=== PATIENT | male | born 1975 | race Caucasian/White ===

== ENCOUNTER 2022-06-17 10:46 | Outpatient (CLI) | payer BC, SELFPAY ==
[2022-06-17 14:26] LABS: Albumin* 4.3 g/dL (3.3-5.0); Chloride* 105 mmol/L (96-114); Potassium* 4.7 mmol/L (3.6-5.1); Sodium* 141 mmol/L (135-149)
[2022-06-17 14:29] LABS: Alanine Aminotransferase* 33 U/L (4-50); Alkaline Phosphatase* 87 U/L (40-150); Aspartate Amino Transferase* 27 U/L (12-35); Bilirubin Total* 0.5 mg/dL (0.1-1.5); Blood Urea Nitrogen* 13 mg/dL (5-24); Carbon Dioxide* 25 mmol/L (20-32); Creatinine* 0.9 mg/dL (0.5-1.5); Estimated Glomerular Filt Rate 108 ml/min; Glucose* 84 mg/dL (60-115); Total Protein* 7.2 g/dL (6.0-8.3)
[2022-06-17 14:30] LABS: Calcium* 9.2 mg/dL (8.4-10.6); Vitamin D 25 Hydroxy* 34 ng/mL (30-80)
[2022-06-17 14:48] LABS: Ferritin* 69.9 ng/mL (17.9-464.0)
[2022-06-17 15:10] LABS: Vitamin B12* 354 pg/mL (243-894)
== END 2022-06-17 10:47 | disposition home or self-care (01) ==
PROVIDERS: PCP Physician Assistant Medical; Visit Provider Physician Assistant Medical
DX: R53.83 Other fatigue (principal)
CPT/HCPCS: 80053; 82306; 82607; 82728; 84443

== ENCOUNTER 2023-06-13 09:45 | Emergency (ER) | payer OTHER, SELFPAY ==
[2023-06-13 10:44] VITALS: BP 144/84; PULSE 70; RESP 16; TEMP 36.5; O2SAT 97; BMI 42.2
--- NOTE | 2023-06-13 13:33 | ED_ITS ---
HPI - Skin/Abscess/Foreign Bdy General Time Seen by Provider: 13:33 Date Seen: 06/13/23 Chief complaint: Skin/Abscess/Foreign Body Stated complaint: Cellulitis Time Seen by Provider: 06/13/23 13:32 Source: patient and RN notes reviewed Mode of arrival: ambulatory Limitations: no limitations History of Present Illness HPI narrative: This 47-year-old male is coming in with concern of right lower extremity cellulitis which he has had recurrent leave before. He states he has chronic swelling in this extremity, does not use any compression stockings. Did review with him that he should probably talk to his primary care provider about some type of compression to help prevent edema buildup in the leg and thus recurrent cellulitis. He notes no trauma, has had no fevers or chills. Has been in bed the last 2 days with nausea and vomiting, some diarrhea just started today. There has been no travel. He does not have a history of thromboembolic disease, no family history of this either. Denies any history of MRSA that he is aware of. Related Data Previous Rx's Medication Instructions Recorded fluoxetine 40 mg capsule 40 mg PO QDAY #90 caps 03/30/23 trazodone 50 mg tablet 50 - 150 mg (1 - 3 x 50 mg) PO QHS 03/30/23 #60 tabs cephalexin 500 mg tablet 1,000 mg (2 x 500 mg) PO TID 7 06/13/23 days #42 tabs Allergies Allergy/AdvReac Type Severity Reaction Status Date / Time No Known Allergies Allergy Unknown Verified 06/13/23 10:43 Review of Systems Status of ROS: Reports: 6 or more systems reviewed and unremarkable except as noted in History and below [facility] Medical History History of cellulitis ?Z87.2 - Personal history of diseases of the skin and subcutaneous tissue (ICD-10) Surgical History History of vasectomy ?Z98.52 - Vasectomy status (ICD-10) History of colonoscopy ?Z98.890 - Other specified postprocedural states (ICD-10) History of cholecystectomy ?Z90.49 - Acquired absence of other specified parts of digestive tract (ICD- 10) History of arthroscopy of right knee (01/30/14) ?Z98.890 - Other specified postprocedural states (ICD-10) Family History Father Cardiac arrhythmia Colon cancer Social History Narrative: does not use illicit drugs nonsmoker occasional alcohol consumption Smoking Status: Never smoker Do you use any of these nicotine containing products: None Second hand tobacco smoke exposure: No How often do you have a drink containing alcohol: monthly or less AUDIT-C Alcohol total score: 1 Non-prescribed substance use: denies use Little interest or pleasure in doing things: more than half the days Feeling down, depressed, or hopeless: more than half the days service: No Exam Const: Vital Signs, click to edit/add: Vital Signs - 24 hr 06/13/23 10:44 Temperature 97.7 F Pulse Rate [Pulse Oximeter] 70 Respiratory Rate 16 Blood Pressure [Ri ght Upper Arm] 144/84 H Pulse Oximetry 97 Oxygen Delivery Me thod Room Air Zane is a very pleasant 47-year-old male lying in the bed in exam room 5. He is obese. He is alert, interactive, no apparent distress. Sclera clear, atraumatic face. Speech is normal. Lungs are clear anteriorly, no tachypnea, no accessory muscle use noted. CV regular rate and rhythm, no murmur, normal S1 and S2, no S3 or S4. Abdomen is soft, no rebound or guarding, no organomegaly. He has about 2 to 3+ pitting edema of his right lower extremity and there is erythema and warmth, tenderness consistent with cellulitis from a few cm below the knee down the leg. She is quite a large distribution of his right lower extremity anteriorly that seems to be involved with the erythema and swelling, presumably cellulitis. Documenting provider has reviewed patient's vital signs: yes Course Course ED Course: Reviewed with patient that I do recommend proceeding with ultrasound of this right lower extremity to ensure that there is no underlying thromboembolic disease. Will place an IV, given 2 g IV Rocephin, get baseline labs. My current assessment is cellulitis of this right lower extremity, rule out DVT. It is likely that he will be able to discharge to home with outpatient oral a ntibiotics and clinic follow-up. Reevaluation(s) Time of Reevaluation #1: 16:04 Reevaluation #1: Reviewed with patient white count just mildly up, C-reactive protein elevated but ultrasound is negative for DVT. Will initiate outpatient oral antibiotics, can start in the morning. He has received Rocephin here. Vital Signs Vital signs: Initial Vital Signs Temperature 97.7 F 06/13/23 10:44 Temperature Source Temporal Artery Scan 06/13/23 10:44 Pulse Rate 70 06/13/23 10:44 Pulse Rhythm Regular 06/13/23 10:44 Pulse Strength 3+ Normal 06/13/23 10:44 Respiratory Rate 16 06/13/23 10:44 Blood Pressure 144/84 H 06/13/23 10:44 Blood Pressure Mean 104 06/13/23 10:44 Blood Pressure Position Sitting 06/13/23 10:44 Pulse Oximetry 97 06/13/23 10:44 Oxygen Delivery Method Room Air 06/13/23 10:44 Vital Signs Temperature 97.7 F 06/13/23 10:44 Pulse Rate 70 06/13/23 10:44 Respiratory Rate 16 06/13/23 10:44 Blood Pressure 144/84 H 06/13/23 10:44 Pulse Oximetry 97 06/13/23 10:44 Oxygen Delivery Method Room Air 06/13/23 10:44 Temperature 97.7 F 06/13/23 10:44 Pulse Rate 70 06/13/23 10:44 Respiratory Rate 16 06/13/23 10:44 Blood Pressure 144/84 H 06/13/23 10:44 Pulse Oximetry 97 06/13/23 10:44 Oxygen Delivery Method Room Air 06/13/23 10:44 MDM - Skin/Abscess/Foreign Bdy Lab Data Attestation: I reviewed the patient's lab results. Labs: Lab Results 06/13/23 Range/Units 14:25 WBC 10.01 (4.50-11.00) K/uL RBC 5.05 (4.30-5.90) m/uL Hgb 15.2 (13.5-17.5) gm/dL Hct 45.6 (37.0-53.0) % MCV 90 (80-100) fL MCH 30 (26-34) pg MCHC 33 (32-36) gm/dL RDW Coeff of Pari 13.3 (11.5-15.5) % Plt Count 198 (140-440) K/uL Neut % (Auto) 77.2 H (42.0-72.0) % Lymph % (Auto) 11.0 L (20-44) % [place] % (Auto) 10.2 (0.0-11.0) % Eos % (Auto) 0.5 (0.0-7.0) % Baso % (Auto) 0.2 (0.0-3.0) % Neut # (Auto) 7.70 H (1.7-7.0) K/uL Lymph # (Auto) 1.10 (0.90-2.90) K/uL [place] # (Auto) 1.00 H (0.00-0.90) K/UL Eos # (Auto) 0.05 (0.00-0.50) K/uL Baso # (Auto) 0.02 (0.00-0.30) K/uL Abs Immat Gran (auto) 0.09 (0.00-0.30) K/uL Imm/Tot Granulo (auto) 0.9 % Sodium 138 (135-149) mmol/L Potassium 3.8 (3.6-5.1) mmol/L Chloride 103 (96-114) mmol/L Carbon Dioxide 26 (20-32) mmol/L Anion Gap 9 (7-15) mEq/L BUN 21 (5-24) mg/dL Creatinine 1.0 (0.5-1.5) mg/dL Estimated Creat Clear 105.42 Estimated GFR 95 ml/min Glucose 88 (60-115) mg/dL Lactate 0.9 (0.5-1.9) mmol/L Calcium 8.3 L (8.4-10.6) mg/dL C-Reactive Protein 19.1 H (0.5-1.0) mg/dL Imaging Data Venous US: Attestation: I have reviewed the pertinent imaging results. Radiologist's impression: Patient: JEREMÍAS GREENE Facility:?[facility] Patient ID:?[id number] Site Patient ID:?[id number]. Site :?[id number] Study:?US Extremity Right VENOUS DVT-06/13/2023 2:16:07 PM Ordering Physician:Meron Zapata Final Report: INDICATION: Right lower extremity swelling, pain, and cellulitis COMPARISON: None. TECHNIQUE: Leon-scale, color, and duplex Doppler imaging of the examined veins. Compression and augmentation attempted where anatomically and clinically feasible. FINDINGS: Laterality: Right Examined veins: Common femoral, femoral, popliteal, peroneal Proximal and mid greater saphenous The examined veins are patent with normal color Doppler flow and a normal venous waveform on duplex Doppler. Where possible, there is normal compression and normal augmentation of flow. The left common femoral vein was stable for comparison and is normal. IMPRESSION: No deep vein thrombosis in the right leg. Dictated by Kristen Harris MD @ 06/13/2023 3:11:46 PM (Electronic Signature) Discharge Plan Discharge Clinical Impression: Cellulitis Patient Disposition: Home, Self-Care Condition: Stable Instructions: Cellulitis (ED) Additional Instructions: Start oral antibiotics tomorrow, take as prescribed. Do recommend that you try to elevate this leg until symptoms are improving. If you feel symptoms are worsening, develops fever, have further concerns, do recommend re-evaluation. Recommend re-evaluation within the next 3-5 days in clinic to ensure appropriate resolution. Activity Level: Activity as Tolerated Prescriptions: New cephalexin 500 mg tablet 1,000 mg PO TID 7 Days Qty: 42 0RF No Action fluoxetine 40 mg capsule 40 mg PO QDAY Qty: 90 1RF trazodone 50 mg tablet 50 - 150 mg PO QHS Qty: 60 0RF Follow Up/Referrals: Devante Pickard PA-C [Primary Care Provider] - Stand Alone Forms: [facility] Info Instructions
--- NOTE | 2023-06-13 13:38 | CRLHL7_ITS ---
For Patients: As a result of the Century Cures Act, medical imaging exams and procedure reports are released immediately into your electronic medical record. You may view this report before your referring provider. If you have questions, please contact your health care provider. INDICATION: Right lower extremity swelling, pain, and cellulitis COMPARISON: None. TECHNIQUE: Leon-scale, color, and duplex Doppler imaging of the examined veins. Compression and augmentation attempted where anatomically and clinically feasible. FINDINGS: Laterality: Right Examined veins: Common femoral, femoral, popliteal, peroneal Proximal and mid greater saphenous The examined veins are patent with normal color Doppler flow and a normal venous waveform on duplex Doppler. Where possible, there is normal compression and normal augmentation of flow. The left common femoral vein was stable for comparison and is normal. IMPRESSION: No deep vein thrombosis in the right leg. Dictated by Kristen Harris MD @ 06/13/2023 3:11:46 PM (Electronically Signed)
[2023-06-13] MEDS: cefTRIAXone 2 GM in 0.9 % SODIUM CHLORIDE Mini-bag 100 ML IVPB (14:31)
[2023-06-13 14:33] LABS: Lactate* 0.9 mmol/L (0.5-1.9)
[2023-06-13 14:40] LABS: Basophils Absolute Auto 0.02 K/uL (0.00-0.30); Basophils Percent Auto 0.2 % (0.0-3.0); Eosinophils Absolute Auto 0.05 K/uL (0.00-0.50); Eosinophils Percent Auto 0.5 % (0.0-7.0); Hematocrit 45.6 % (37.0-53.0); Hemoglobin* 15.2 gm/dL (13.5-17.5); Immature Granulocytes Abs Auto 0.09 K/uL (0.00-0.30); Immature Granulocytes Pct Auto 0.9 %; Mean Corpuscular HGB Conc 33 gm/dL (32-36); Mean Corpuscular Hemoglobin 30 pg (26-34); Mean Corpuscular Volume 90 fL (80-100); Monocytes Percent Auto 10.2 % (0.0-11.0); Neutrophils Percent Auto 77.2 % (42.0-72.0); Platelet Count* 198 K/uL (140-440); RDW Coefficient of Variation % 13.3 % (11.5-15.5); Red Blood Count 5.05 m/uL (4.30-5.90); White Blood Count* 10.01 K/uL (4.50-11.00)
[2023-06-13 14:43] LABS: Slide Review Reflex No
[2023-06-13 15:29] LABS: Chloride* 103 mmol/L (96-114)
[2023-06-13 15:30] LABS: Potassium* 3.8 mmol/L (3.6-5.1); Sodium* 138 mmol/L (135-149)
[2023-06-13 15:32] LABS: Est. Creatinine Clearance* 105.42; Estimated Glomerular Filt Rate 95 ml/min
[2023-06-13 15:33] LABS: Anion Gap 9 mEq/L (7-15); Blood Urea Nitrogen* 21 mg/dL (5-24); Calcium* 8.3 mg/dL (8.4-10.6); Carbon Dioxide* 26 mmol/L (20-32); Glucose* 88 mg/dL (60-115)
[2023-06-13 15:51] LABS: C Reactive Protein* 19.1 mg/dL (0.5-1.0)
== END 2023-06-13 16:14 | disposition home or self-care (01) ==
PROVIDERS: Emergency Provider Family Medicine; PCP Physician Assistant Medical
DX: L03.115 Cellulitis of right lower limb (principal)
CPT/HCPCS: 36415; 80048; 83605; 85025; 86140; 93971; 96365; 99284; J0696

== ENCOUNTER 2024-07-16 08:35 | Outpatient (CLI) | payer OTHER, SELFPAY ==
--- OUTSIDE RECORDS SUMMARY | 2024-07-18 09:50 | XMS_ITS | Clinical Summary ---
Author Organization [facility] Address [place], [place] [address] Care Team Providers Care Public Health Policy Analyst Name Role Phone Pcp, No Primary Care Provider Unavailabl e Allergies Active Allergy Reactions Criticality Noted Date Comments Zolpidem Confusion Medium 06/30/2006 Lorazepam Hallucinations Medium 06/30/2006 Medications Medication Sig Dispensed Refills Start Date End Date Status HYDROcodone-acetam inophen, 5-325 mg, (NORCO) per tablet Take 1-2 tablets by mouth every 4-6 hours as needed for pain. Max daily dose of acetaminophen is 4000mg 20 tablet 03/06/2013 Active trimethoprim-sulfa methoxazole, 160-800 mg, (BACTRIM DS, SEPTRA DS) tablet Take 1 tablet by mouth twice daily for 10 days 20 tablet 03/06/2013 Active Active Problems Problem Noted Date Diagnosed Date Calculus of gallbladder with out mention of cholecystitis or obstruction 07/02/2006 Overview (07/02/2006): S/P lap ruben 06/30/06 Dr. Can Acute pancreatitis 06/27/2006 Hypocalcemia 06/27/2006 Esophageal reflux 06/27/2006 LEUKOCYTOSIS 06/27/2006 Social History Tobacco Use Types Packs/Day Years Used Date Smoking Tobacco: Never Alcohol Use Standard Drinks/Week Comments No 0 (1 standard drink = 0.6 oz pur e alcohol) Sex and Gender Information Value Date Recorded Sex Assigned at Not on file Gender Identity Not on file Sexual Orientation Not on file Obstetrics History Last Filed Vital Signs Vital Sign Reading Time Taken Comments Blood Pressure 133/84 06/17/2010 10:19 AM CDT Pulse 60 06/17/2010 10:19 AM CDT Temperature 36.4 C (97.6 F) 06/17/2010 10:19 AM CDT Respiratory Rate 16 06/17/2010 10:19 AM CDT Oxygen Saturation 99% 06/17/2010 10:19 AM CDT Inhaled Oxygen Concentration - - Weight 158.8 kg (350 lb) 06/17/2010 10:19 AM CDT Height 188 cm (6' 2) 06/17/2010 10:19 AM CDT Body Mass Index 44.94 06/17/2010 10:19 AM CDT Plan of Treatment Health Maintenance Due Date Last Done Comments Tdap 1988 Depression screening for age 12+ 1989 HIV for age 15-65 1992 BMI (ht and wt on same day) for age 18+ 12/30/1995 Hepatitis C screening for ag e 18-79 12/30/1995 Tetanus booster 1997 Colonoscopy through age 75 2022 Lipids for age 45-75 2022 06/26/2006 COVID-19 vaccine series (2023-25 season) 2024 Influenza for age 9-49 04/21/2024 Pneumococcal series for age 6-64 Aged Out No longer eligible based on patient's age to complete this topic Procedures Procedure Name Priority Date/Time Associated Diagnosis Comments LIPID PANEL Routine 06/26/2006 4:01 PM RING PACKER Acute Pancreatitis from Last 3 Months or Most Recently Relevant to Health Maintenance Results * (ABNORMAL) LIPID PANEL (06/26/2006 4:01 PM RING PACKER) CHOLESTEROL,TOTAL 101(L) 110 - 199 mg/dL [facility] TRIGLYCERIDES 46 40 - 149 mg/dL [facility] HDL CHOLESTEROL 49 >40 mg/dL [facility] CHOL/HDL RATIO 2.06 <4.51 [facility] LDL CHOLESTEROL 43 <131 mg/dL [facility] PATIENT STATUS Fasting [facility] Blood specimen (specimen) BLOOD SPECIMEN / Unknown 06/26/2006 4:01 PM RING PACKER 06/26/2006 3:56 PM RING PACKER R Ye Han MD CHEMISTRY [facility] [place]NAL ZIP [address] [address] from Last 3 Months or Most Recently Relevant to Health Maintenance Advance Directives * Full Code (Latest Code Status on File) Date Activated Date Inactivated Comments 06/26/2006 9:42 PM 07/02/2006 6:35 PM Care Teams Public Health Policy Analyst Relationship Specialty Start Date End Date Pcp, No . PCP - General 03/06/13
--- OUTSIDE RECORDS SUMMARY | 2024-07-18 09:50 | XMS_ITS | Encounter Summary ---
Author Organization [facility] Address [address] [place] [address] Care Team Providers Care Compensator Worker Name Role Phone [facility] Primary Care Provider Marilu Judge PA-C Unavailable [phone] Marilu Judge PA-C Unavailable [phone] Devante PickardC Primary Care Provider [phone] Encounter Details Date Type Department Care Team (Late st Contact Info) Description 10/11/2023 MyC Medical Advice [facility] [address] [place] [id number] Glendy Kraft MA Social History Tobacco Use Types Packs/Day Years Used Date Smoking Tobacco: Never Assessed Alcohol Use Standard Drinks/Week Comments Yes 0 (1 standard drink = 0.6 oz pur e alcohol) Adolescent Education Answer Date Record ed Getting School Help Needed Not on file 05/12 Sex and Gender Information Value Date Recorded Sex Assigned at Not on file Legal Sex Male 12:33 PM CDT Gender Identity Not on file Sexual Orientation Not on file documented as of this encounter Plan of Treatment Not on file documented as of this encounter Visit Diagnoses Not on filedocumented in this encounter Care Teams Compensator Worker Relationship Specialty Start Date End Date [facility] [address] [place] [address] PCP - General 03/01/23 01/22/24 Devante Pickard PA-C [address] [facility] [place] [address] PCP - General 01/23/24 Marilu Judge PA-C [address] [place] [address] Physician [employer] Urology 10/09/23 Marilu Judge PA-C [address] [place] [address] Assigned Surgical Provider 11/03/23 documented as of this encounter
--- OUTSIDE RECORDS SUMMARY | 2024-07-18 09:50 | XMS_ITS | Encounter Summary ---
Author Organization [place] Address [address] [place] [address] Care Team Providers Care Compliance Investigator Name Role Phone [facility] Primary Care Provider Marilu Judge PA-C Unavailable [phone] Marilu Judge PA-C Unavailable [phone] Devante PickardC Primary Care Provider [phone] Encounter Details Date Type Department Care Team (Late st Contact Info) Description 12/25/2023 MyC Medical Advice [facility] Preoperative Assessment Center [address] [place] [address] Marie Hoover, RN Social History Tobacco Use Types Packs/Day Years Used Date Smoking Tobacco: Never Smokeless Tobacco: Never Alcohol Use Standard Drinks/Week Comments Yes 0 (1 standard drink = 0.6 oz pur e alcohol) Moderate PHQ-2 Answer Date Recorded PHQ-2 Score 1 12/25/2023 Adolescent Education Answer Date Record ed Getting [...] on filedocumented in this encounter Care Teams Compliance Investigator Relationship Specialty Start Date End Date [facility] [address] [place] [address] PCP - General 03/01/23 01/22/24 Devante Pickard PA-C [facility] [address] [place] [address] PCP - General 01/23/24 Marilu Judge PA-C [address] [place] [address] Physician Core Inspector Urology 10/09/23 Marilu Judge PA-C [address] [place] [address] Assigned Surgical Provider 11/03/23 documented as of this encounter
--- OUTSIDE RECORDS SUMMARY | 2024-07-18 09:50 | XMS_ITS | Encounter Summary ---
Author Organization [facility] Address [address] [place] [address] Care Team Providers Care Search Strategist Name Role Phone [facility] Primary Care Provider Marilu Judge PA-C Unavailable [phone] Marilu Judge PA-C Unavailable [phone] Devante Pickard PA-C Primary Care Provider [phone] Encounter Details Date Type Department Care Team (Late st Contact Info) Description 10/25/2023 MyC Medical Advice [facility] [address] [place] [address] Etta Weber Social History Tobacco Use Types Packs/Day Years [...] on filedocumented in this encounter Care Teams Search Strategist Relationship Specialty Start Date End Date [facility] [address] [facility] [place] [address] PCP - General 03/01/23 01/22/24 Devante Pickard PA-C [facility] [address] [facility] [place] [address] PCP - General 01/23/24 Marilu Judge PA-C [address] [place] [address] Physician General Operations Agent Urology 10/09/23 Marilu Judge PA-C [address] [place] [address] Assigned Surgical Provider 11/03/23 documented as of this encounter
--- OUTSIDE RECORDS SUMMARY | 2024-07-18 09:50 | XMS_ITS | Referral Summary ---
Author Organization [place] Address [address] [place] [address] Care Team Providers Care Brine Maker Name Role Phone Marilu Judge PA-C Unavailable [phone] Marilu Judge PA-C Unavailable Devante Pickard PA-C Primary Care Provider [phone] Allergies Active Allergy Reactions Criticality Noted Date Comments Lorazepam Other (See Comments) Medium 06/30/2006 Zolpidem Unknown Medium 06/30/2006 Medications acetaminophen 650 MG TABSIndications :Leg pain,Cellulitis Take 650 mg by mouth every 4 hours as needed. (Do not mix with any other tylenol containing medications such as your former prescribed pain pill) 100 tablet 3 Active FLUoxetine (PROZAC) 40 MG capsule Take 40 mg by mouth every morning 4 Active Active Problems Problem Noted Date Diagnosed Date Morbid obesity with BMI of 40.0-44.9, adult 02/19 Overview (03/10/2013): BMI 40.6 kg/m2 February 2013 Cellulitis 03/08/2013 Immunizations Name Administration Dates Next Due TDAP (Adacel,Boostrix) 03/01/2023 Social History Tobacco Use Types Packs/Day Years Used Date Smoking Tobacco: Never Smokeless Tobacco: Never Tobacco Cessation:Counseling Given: Not Answered Alcohol Use Standard Drinks/Week Comments Yes 0 [...] on file Sexual Orientation Not on file Last Filed Vital Signs Vital Sign Reading Time Taken Comments Blood Pressure 137/82 01/23/2024 1:30 PM CDT Pulse 59 01/23/2024 12:00 PM CDT Temperature 36.6 C (97.8 F) 10/09/2023 8:43 AM COMPUTER TYPESETTER KEYLINER Respiratory Rate 16 01/23/2024 12:00 PM CDT Oxygen Saturation 100% 01/23/2024 1:30 PM CDT Inhaled Oxygen Concentration - - Weight 152 kg (335 lb) 01/23/2024 11:53 AM CDT Height 185.4 cm (6' 1) 01/23/2024 11:53 AM CDT Body Mass Index 44.2 01/23/2024 11:53 AM CDT Plan of Treatment Not on file Procedures Procedure Name Priority Date/Time Associated Diagnosis Comments COMPREHENSIVE METABOLIC PANEL STAT 10/09/2023 8:45 AM COMPUTER TYPESETTER KEYLINER from Last 3 Months or Most Recently Relevant to Health Maintenance Results * (ABNORMAL) Comprehensive metabolic panel (10/09/2023 8:45 AM COMPUTER TYPESETTER KEYLINER) [facility] Signature Sodium 133(L) 135 - 145 mmol/L 10/09/2023 9:25 AM COMPUTER TYPESETTER [facility] Comment:Reference intervals for this test were updated on 05/16/2023 to more accurately reflect our healthy population. There may be differences in the flagging of prior results with similar values performed with this method. Interpretation of those prior results can be made in the context of the updated reference intervals. Potassium 4.2 3.4 - 5.3 mmol/L 10/09/2023 9:25 AM [facility] Carbon Dioxide (CO2) 25 22 - 29 mmol/L 10/09/2023 9:25 AM [facility] Anion Gap 11 7 - 15 mmol/L 10/09/2023 9:25 AM [facility] Urea Nitrogen 13.3 6.0 - 20.0 mg/dL 10/09/2023 9:25 AM [facility]YP[facility]ET[facility] Creatinine 1.58(H) 0.67 - 1.17 mg/dL 10/09/2023 9:25 AM COMPUTER TYPESETTER [facility] GFR Estimate 55(L) >60 mL/min/1. 73m2 10/09/2023 9:25 AM COM[facility] TYP[facility] Calcium 9.2 8.6 - 10.0 mg/dL 10/09/2023 9:25 AM COM[facility]YP[facility] Chloride 97(L) 98 - 107 mmol/L 10/09/2023 9:25 AM COM[facility]YP[facility]ET[facility] Glucose 102(H) 70 - 99 mg/dL 10/09/2023 9:25 AM [facility]YP[facility] Alkaline Phosphatase 75 40 - 150 U/L 10/09/2023 9:25 AM COMPUT[facility] TYPESET[facility] Comment:Reference intervals for this test were updated on 07/04/2023 to more accurately reflect our healthy population. There may be differences in the flagging of prior results with similar values performed with this method. Interpretation of those prior results can be made in the context of the updated reference intervals. AST 20 0 - 45 U/L 10/09/2023 9:25 AM COMPUTER TYPESETTER [facility] Comment:Reference intervals for this test were updated on 01/30/2023 to more accurately reflect our healthy population. There may be differences in the flagging of prior results with similar values performed with this method. Interpretation of those prior results can be made in the context of the updated reference intervals. ALT 20 0 - 70 U/L 10/09/2023 9:25 AM COMPUT[facility] TYPESET[facility] Comment:Reference intervals for this test were updated on 01/30/2023 to more accurately reflect our healthy population. There may be differences in the flagging of prior results with similar values performed with this method. Interpretation of those prior results can be made in the context of the updated reference intervals. Protein Total 8.2 6.4 - 8.3 g/dL 10/09/2023 9:25 AM [facility] Albumin 4.3 3.5 - 5.2 g/dL 10/09/2023 9:25 AM [facility] Bilirubin Total 0.6 <=1.2 mg/dL 10/09/2023 9:25 AM COM[facility]ET[facility] Blood BLOOD SPECIMEN / Unknown Venipuncture / Unknown 10/09/2023 8:45 AM COMPUTER TYPESETTER KEYLINER 10/09/2023 8:55 AM COMPUTER TYPESETTER KEYLINER us Tiny Sheppard DO LAB - BLOOD ORDERABLES F inal Result [facility] [address] Lab (1st floor, no room number) [place] [address], [facility] [phone] from Last 3 Months or Most Recently Relevant to Health Maintenance Insurance [employer] Advance Directives For more information, please contact: [phone] * Full Code (Latest Code Status on File) Date Activated Date Inactivated Comments 03/12/2013 8:36 AM 03/01/2023 1:05 AM * Full Code Date Activated Date Inactivated Comments 03/08/2013 3:41 PM 03/12/2013 8:36 AM Care Teams Brine Maker Relationship Specialty Start Date End Date Devante Pickard PA-C [facility] [address] [facility] [place] [address] PCP - General 01/23/24 Marilu Judge PA-C [address] [place] [address] Physician Onboarding Specialist Urology 10/09/23 Marilu Judge PA-C [address] [place] [address] Assigned Surgical Provider 11/03/23
--- OUTSIDE RECORDS SUMMARY | 2024-07-18 09:50 | XMS_ITS | Encounter Summary ---
Author Organization [facility] Address [address] [place] [address] Care Team Providers Care Shipboard Intelligence Analyst Name Role Phone Marilu Judge PA-C Unavailable [phone] Marilu Judge PA-C Unavailable [phone] Devante Pickard PA-C Primary Care Provider [phone] Encounter Details Date Type Department Care Team (Late st Contact Info) Description 01/31/2024 [facility] Medical Advice [facility] [address] [place] [address] Andreia Arriaga, MALCOLM Social History Tobacco Use Types Packs/Day Years [...] on filedocumented in this encounter Care Teams Shipboard Intelligence Analyst Relationship Specialty Start Date End Date Devante Pickard PA-C [place] [address] [place] [address] PCP - General 01/23/24 Marilu Judge PA-C [address] [place] [address] [address] Deliverer Urology 10/09/23 Marilu Judge PA-C [address] [place] [address] Assigned Surgical Provider 11/03/23 documented as of this encounter
--- OUTSIDE RECORDS SUMMARY | 2024-07-18 09:50 | XMS_ITS | Clinical Summary ---
Author Organization [facility] Address [address] [place] [address] Care Team Providers Care Clinical Application Consultant Name Role Phone Marilu Judge PA-C Unavailable [phone] Marilu Judge PA-C Unavailable Devante Pickard PA-C Primary Care Provider [phone] Allergies Active Allergy Reactions Criticality Noted Date [...] 36.6 C (97.8 F) 10/09/2023 8:43 AM [facility] Respiratory Rate 16 01/23/2024 12:00 PM CDT Oxygen Saturation 100% 01/23/2024 1:30 PM CDT Inhaled Oxygen Concentration - - Weight 152 kg (335 lb) 01/23/2024 11:53 AM CDT Height 185.4 cm (6' 1) 01/23/2024 11:53 AM CDT Body Mass Index 44.2 01/23/2024 11:53 AM CDT Plan of Treatment Health Maintenance Due Date Last Done Comments ADVANCE CARE PLANNING 1977 ANNUAL REVIEW OF HM ORDERS 1977 CT COLONOGRAPHY 1977 FIT 1977 FLEX SIG 1977 YEARLY PREVENTIVE VISIT 1977 sDNA (Cologuard) 1977 COLONOSCOPY 12/30/1987 COLORECTAL CANCER SCREENING 12/30/1987 HIV SCREENING 1992 HEPATITIS C SCREENING 12/30/1995 HEPATITIS B IMMUNIZATION (1 of 3 - 19+ 3-dose series) 1996 LIPID 2017 COVID-19 Vaccine ( season) 2024 06/21/2021, 10/29/2020 INFLUENZA VACCINE (#1) 2024 , 06/21/2021, 04/23/2020, Additional history exists BMP 10/09/2024 10/09/2023, 09/21, 03/11/2013, Additional history exists GLUCOSE 10/09/2026 10/09/2023, 09/21, 03/11/2013, Additional history exists DTAP/TDAP/TD IMMUNIZATION (3 - Td or Tdap) 03/01/2033 03/01/2023, 01/08/2014 RSV VACCINE (1 - 1-dose 75+ series) 2052 PHQ-2 (once per calendar year) Completed 12/25/2023 HPV IMMUNIZATION Aged Out No longer e ligible based on patient's age to complete this topic MENINGITIS IMMUNIZATION Aged Out No l onger eligible based on patient's age to complete this topic Pneumococcal Vaccine: Pediatrics (0 to 5 Years) and At-Risk Patients (6 to 64 Years) Aged Out No longer eligible based on patient's age to complete this topic RSV MONOCLONAL ANTIBODY Aged Out No l onger eligible based on patient's age to complete this topic Procedures Procedure Name Priority Date/Time Associated Diagnosis Comments COMPREHENSIVE METABOLIC PANEL STAT 10/09/2023 8:45 AM [facility] from Last 3 Months or Most Recently Relevant to Health Maintenance Results * (ABNORMAL) Comprehensive metabolic panel (10/09/2023 8:45 AM [facility]) Sodium 133(L) 135 - 145 mmol/L 10/09/2023 9:25 AM [facility] Comment:Reference intervals for this test were updated on 05/16/2023 to more accurately reflect our healthy population. There may be differences in the flagging of prior results with similar values performed with this method. Interpretation of those prior results can be made in the context of the updated reference intervals. Potassium 4.2 3.4 - 5.3 mmol/L 10/09/2023 9:25 AM [facility] Carbon Dioxide (CO2) 25 22 - 29 mmol/L 10/09/2023 9:25 AM [facility] Anion Gap 11 7 - 15 mmol/L 10/09/2023 9:25 AM [facility] Urea Nitrogen 13.3 6.0 - 20.0 mg/dL 10/09/2023 9:25 AM [facility] Creatinine 1.58(H) 0.67 - 1.17 mg/dL 10/09/2023 9:25 AM [facility] GFR Estimate 55(L) >60 mL/min/1. 73m2 10/09/2023 9:25 AM [facility] Calcium 9.2 8.6 - 10.0 mg/dL 10/09/2023 9:25 AM [facility] Chloride 97(L) 98 - 107 mmol/L 10/09/2023 9:25 AM [facility] Glucose 102(H) 70 - 99 mg/dL 10/09/2023 9:25 AM [facility] Alkaline Phosphatase 75 40 - 150 U/L 10/09/2023 9:25 AM [facility] Comment:Reference intervals for this test were updated on 07/04/2023 to more accurately reflect our healthy population. There may be differences in the flagging of prior results with similar values performed with this method. Interpretation of those prior results can be made in the context of the updated reference intervals. AST 20 0 - 45 U/L 10/09/2023 9:25 AM [facility] Comment:Reference intervals for this test were updated on 01/30/2023 to more accurately reflect our healthy population. There may be differences in the flagging of prior results with similar values performed with this method. Interpretation of those prior results can be made in the context of the updated reference intervals. ALT 20 0 - 70 U/L 10/09/2023 9:25 AM [facility] Comment:Reference intervals for this test were updated on 01/30/2023 to more accurately reflect our healthy population. There may be differences in the flagging of prior results with similar values performed with this method. Interpretation of those prior results can be made in the context of the updated reference intervals. Protein Total 8.2 6.4 - 8.3 g/dL 10/09/2023 9:25 AM [facility] Albumin 4.3 3.5 - 5.2 g/dL 10/09/2023 9:25 AM [facility] Bilirubin Total 0.6 <=1.2 mg/dL 10/09/2023 9:25 AM [facility] Blood BLOOD SPECIMEN / Unknown Venipuncture / Unknown 10/09/2023 8:45 AM [facility] 10/09/2023 8:55 AM [facility] us Tiny Sheppard DO LAB - BLOOD ORDERABLES F inal Result [facility] [address] [facility] (1st floor, no room number) [place] [address], [facility] [phone] from Last 3 Months or Most Recently Relevant to Health Maintenance Insurance [facility] [employer] Member Subscriber Plan / Payer (Ef fective 2023-Present) Name:Adelfo Cervantes Relation to Subscriber:Self Name:Adelfo Cervantes Payer ID:[id number] (NAIC) Type:HMO Address: [place] [phone] Advance Directives For more information, please contact: [phone] * Full Code (Latest Code Status on File) Date Activated Date Inactivated Comments 03/12/2013 8:36 AM 03/01/2023 1:05 AM * Full Code Date Activated Date Inactivated Comments 03/08/2013 3:41 PM 03/12/2013 8:36 AM Care Teams Clinical Application Consultant Relationship Specialty Start Date End Date Devante Pickard PA-C [place] [address] [place] [address] PCP - General 6/4/24 Marilu Judge PA-C [address] [place] [address] Physician Leather Goods Sales Representative Urology 10/09/23 Marilu Judge PA-C [address] [place] [address] Assigned Surgical Provider 11/03/23
--- OUTSIDE RECORDS SUMMARY | 2024-07-18 09:50 | XMS_ITS | Encounter Summary ---
Author Organization [facility] Address [address] [place] [address] Care Team Providers Care Building Maintenance Supervisor Name Role Phone Calvin [facility] Primary Care Provider Marilu Judge PA-C Unavailable [phone] Marilu Judge PA-C Unavailable [phone] Devante PickardC Primary Care Provider [phone] Encounter Details Date Type Department Care Team (Late st Contact Info) Description 01/11/2024 [facility] Medical Advice [facility] [address] [place] [address] Beata Portillo RN Social History Tobacco Use Types Packs/Day [...] on filedocumented in this encounter Care Teams Building Maintenance Supervisor Relationship Specialty Start Date End Date [facility], [facility] [address] [place] [address] PCP - General 03/01/23 01/22/24 Devante Pickard PA-C [facility] [address] [facility] [place] [address] PCP - General 01/23/24 Marilu Judge PA-C [address] [place] [address] Physician Glass Artist Urology 10/09/23 Marilu Judge PA-C [address] [place] [address] Assigned Surgical Provider 11/03/23 documented as of this encounter
== END 2024-07-16 08:36 | disposition home or self-care (01) ==
LOC: NFLDREF 07-18 09:48
PROVIDERS: PCP Physician Assistant Medical; Referring Provider Physician Assistant Medical; Visit Provider Physician Assistant Medical
DX: R03.0 Elevated blood-pressure reading, without diagnosis of hypertension (principal); E66.01 Morbid (severe) obesity due to excess calories; F32.1 Major depressive disorder, single episode, moderate; F32.A Depression, unspecified; M87.88 Other osteonecrosis, other site; Z13.6 Encounter for screening for cardiovascular disorders
CPT/HCPCS: 80053; 80061; 84443

== ENCOUNTER 2025-06-05 09:22 | Outpatient (CLI) | payer OTHER, SELFPAY | END 2025-06-05 09:23 | disposition home or self-care (01) | LOC: NFLDREF 06-10 16:43 | PROVIDERS: PCP Physician Assistant Medical; Referring Provider Physician Assistant Medical; Visit Provider Physician Assistant Medical | DX: I10 Essential (primary) hypertension (principal) | CPT/HCPCS: 80048 ==